=== PATIENT | female | born 1975 | race Caucasian/White ===

== ENCOUNTER → 2017-12-09 15:56 | Outpatient (CLI) | payer BC, SELFPAY ==
[2017-12-13 11:24] LABS: HPV APTIMA, High Risk Negative (Negative)
[2017-12-13 11:25] LABS: HPV Reflexed? YES, CHARGE PATIENT
== END ==
PROVIDERS: Family Provider Internal Medicine; PCP Internal Medicine; Visit Provider Obstetrics & Gynecology
DX: Z01.419 Encounter for gynecological examination (general) (routine) without abnormal findings (principal); Z12.4 Encounter for screening for malignant neoplasm of cervix; Z11.3 Encounter for screening for infections with a predominantly sexual mode of transmission
CPT/HCPCS: 87624; 88175; G0145

== ENCOUNTER → 2018-03-20 15:28 | Outpatient (CLI) | payer BC, SELFPAY ==
--- NOTE | 2018-03-20 15:28 | DT_ITS ---
This patient was seen during an EMR downtime March 17, 2018 - March 24, 2018. This patient may have a combination of paper and electronic documentation or all paper documentation. All documentation is viewable within the e-chart portion of [facility] for each patient visit.
--- NOTE | 2018-03-20 15:32 | RAD_ITS ---
STUDY: X-RAY - RIGHT HUMERUS REASON FOR EXAM: Female, 43 years old. Pain TECHNIQUE: Two view(s) of the RIGHT upper arm were obtained. COMPARISON: None. FINDINGS: Bones: There are no acute osseous abnormalities. Joints: The visualized joints are unremarkable. Soft tissues: The soft tissues are unremarkable. RAD/Humerus min 2 Views IMPRESSION: No significant abnormalities are seen radiographically in the right upper arm. Electronically Signed: Yandy Martínez MD at 22:13 EDT Tel Direct: [phone], Service support ,
--- NOTE | 2018-03-20 15:32 | RAD_ITS ---
STUDY: X-RAY - RIGHT SHOULDER REASON FOR EXAM: Female, 43 years old. Pain TECHNIQUE: Four view(s) of the RIGHT shoulder were obtained. COMPARISON: None. FINDINGS: The glenohumeral joint is within normal limits. The acromioclavicular joint is normal in appearance. No acute abnormalities are seen in the visualized clavicle. No acute abnormalities are seen in the visualized humerus. The soft tissues are unremarkable. The visualized lung and ribs are unremarkable. RAD/Shoulder min 2 Views IMPRESSION: No significant abnormalities are seen radiographically in the right shoulder. Electronically Signed: Yandy Martínez MD at 22:15 EDT Tel Direct: [phone], Service support ,
== END ==
PROVIDERS: Family Provider Internal Medicine; PCP Internal Medicine; Visit Provider Internal Medicine
DX: M79.601 Pain in right arm (principal)
CPT/HCPCS: 73030; 73060

== ENCOUNTER 2018-03-26 15:47 | Outpatient (RCR) | payer BC, SELFPAY ==
--- NOTE | 2018-06-09 15:19 | HP.OTEVAL_ITS ---
Patient's Visit Information MARY GRACE JIMENEZ is a 43 year old F, referred to Occupational Therapy by Theresa Slater, with a diagnosis of right axillary fullness/sore. Date of Evaluation: 03/26/18 Occupational Therapist: Piper Anderson, CAILINR/Cortney, CHT - Subjective Subjective: pt states for 3 years she has had difficulty with lymph axillary sore-. pt states a fullness feeling pain in arm pit- shoulder and going down her arm- pt states full ROM but with prolonged holding or arm up over head her right arm hurts. Pt states she will have a CT scan of her right shoulder done to determine what is going on with her arm in two days. - Pain right UE 0 Pain Intensity Range: 0, 7 - ROM ROM Comments: bilatera UE ROM is within normal limits - Strength Shoulder: right 4+/5 left 4/5 Elbow: right 4+/5 left 4/5 Forearm: right 4+/5 left 4/5 Jumpbasting Lining Baster: right 65# left 40# Lateral Pinch: right 10# left 10# Tripod Pinch: right 14# left 10# Strength Comments: pt demo a decline in left UE strength - with pain pt states she feels weaker - Lymphedema (Circumferential Measure) Upper Exremity Comments: no noted circumferential differences at this time in UE - Sensation Sensation Comments: denies - DASH-Disabilities of Arm, Shoulder& Hand DASH Sum: 40 - Goals Demonstrate adequate knowledge of self-massage by 2nd week: Yes Demonstrate adequate knowledge skin care/prec by 2nd week: Yes Demonstrate adequate knowledge therapeutic exercises by d/c: Yes - Rehabilitation General Assessment: pt demo with tenderness under her right axillary. pt demo need of ed. on lymph stim ex, self MLD and use of compression garments to apply light compression. pt to have CT scan of right shoulder March 28, 2018 to see what they can find. Pt advised to return following so therapist could review ex , MLD and compression. pt stated she would schedule following results. Rehabilitation Potential: Good - Anticipated Interventions Anticipated Interventions: Manual Lymph Drainage, Education re Self Massage Techniques, Home Program - Visit Plan TEXT: Thank you for the opportunity to evaluate your patient. For Medicare and Medicare HMO plans, please review the plan of care and approve it. It will need to be FAXED BACK to us at [phone] for Medicare purposes. Please let me know if there are questions or concerns regarding this plan of care. Physician Signature: Date:
--- NOTE | 2018-06-09 15:19 | HP.OT.NRP ---
HP - Discharge Summary - Patient Information MARY GRACE JIMENEZ was seen in my office for initial evaluation on 03/26/18. The following Plan of Care was established for this patient: - Anticipated Interventions Anticipated Interventions: Manual Lymph Drainage, Education re Self Massage Techniques, Home Program This patient was last seen in our office . Pertinent comments regarding their Occupational therapy will appear below: At this point I will be discontinuing this patient from occupational therapy. I would be happy to see this patient again in the future if found appropriate by the physician. Thank you! Piper Anderson, OTR/L, CHT
--- NOTE | 2018-06-10 09:22 | HP.OT.NRP ---
HP - Discharge Summary - Patient Information MARY GRACE JIMENEZ was seen in my office for initial evaluation on 03/26/18. The following Plan of Care was established for this patient: - Anticipated Interventions Anticipated Interventions: Manual Lymph Drainage, Education re Self Massage Techniques, Home Program This patient was last seen in our office 03/26/18. Pertinent comments regarding their Occupational therapy will appear below: pt was seen for initial eval, pt did not return for follow up tx and due to time laps pt D/C at this time. At this point I will be discontinuing this patient from occupational therapy. I would be happy to see this patient again in the future if found appropriate by the physician. Thank you! Piper Anderson, OTR/L, CHT
== END 2018-03-26 19:00 | disposition home or self-care (01) ==
LOC: OT 15:47
PROVIDERS: Family Provider Internal Medicine; PCP Internal Medicine; Visit Provider Internal Medicine
DX: R22.2 Localized swelling, mass and lump, trunk (principal)
CPT/HCPCS: 97166

== ENCOUNTER → 2018-03-28 06:39 | Outpatient (CLI) | payer BC, SELFPAY ==
--- NOTE | 2018-03-28 06:42 | CT_ITS ---
STUDY: CT RIGHT SHOULDER REASON FOR EXAM: Female, 43 years old. Right axillary fullness, shoulder aching and arm pain, no trauma. RADIATION DOSAGE (If Supplied By Facility): CTDIvol = ( 12.10 ) mGy, DLP = ( 713.81 ) mGycm TECHNIQUE: The patient was scanned in a multi detector CT scanner. High resolution transaxial imaging was performed without the administration of intravenous contrast material. Sagittal and coronal images were reconstructed. Images were performed prior to and following intravenous contrast ministration. Individualized dose optimization techniques were used for this CT. COMPARISON: None. FINDINGS: Normal glenohumeral articulation. Normal glenoid rim, neck and visualized scapula. Normal humeral head, neck and tuberosities. Normal coracoid process. Normal visualized lateral clavicle. Normal acromioclavicular articulation. There is a Type I morphology (flat undersurface), with a neutral orientation. There are small nonpathologic appearing right axillary lymph nodes. No enhancing mass. CT/Extremity Upper W/WO Contrast IMPRESSION: Normal CT of the shoulder. Electronically Signed: Ford Strickland DO at 13:03 EDT Tel , Service support ,
== END ==
PROVIDERS: Family Provider Internal Medicine; PCP Internal Medicine; Visit Provider Internal Medicine
DX: R22.2 Localized swelling, mass and lump, trunk (principal)
CPT/HCPCS: 73202

== ENCOUNTER → 2018-11-11 15:16 | Outpatient (CLI) | payer BC, SELFPAY ==
--- NOTE | 2018-11-11 15:20 | BI_ITS ---
MAMMOGRAPHY - BILATERAL SCREENING REASON FOR EXAM: Female, 43 years old. Routine annual screening examination. PERTINENT HISTORY: Non-contributory. TECHNIQUE: Digital bilateral breast yvette (3D mammographic acquisition) in the CC and MLO projections. 2-D mediolateral oblique (MLO) and craniocaudad (CC) views of both breasts were obtained. CAD: Full Field Digital Mammography with Computer Added Detection was performed. COMPARISON: Comparison is made with prior study dated August 27, 2017 and December 10, 2014. FINDINGS: Breast Composition: The breasts are heterogeneously dense, which may obscure small masses. There are no dominant masses or suspicious calcifications. Stable bilateral benign-appearing axillary lymph nodes. No other significant abnormalities are identified. There has been no significant change since the prior study. BI/SCREENING MAMM (CAD), BILAT IMPRESSION: Stable bilateral screening mammogram. Yearly follow-up mammogram recommended. (A) ASSESSMENT CATEGORY: BIRADS Category 2: Benign. A letter regarding these results will be sent to the patient by the facility within 30 days. Approximately 10% of breast cancers are not detected by mammography. A normal mammogram should not delay biopsy of a clinically suspicious abnormality. [id number] Electronically Signed: Ron Gross MD at 10:09 EST , Service support ,
== END ==
PROVIDERS: Family Provider Internal Medicine; PCP Internal Medicine; Referring Provider Internal Medicine; Visit Provider Internal Medicine
DX: Z12.31 Encounter for screening mammogram for malignant neoplasm of breast (principal)
CPT/HCPCS: 77063; 77067

== ENCOUNTER → 2019-11-12 | Outpatient (CLI) | payer BC, SELFPAY ==
--- NOTE | 2019-11-12 15:42 | BI_ITS ---
MAMMOGRAPHY - BILATERAL SCREENING REASON FOR EXAM: Female, 44 years old. Routine annual screening examination. PERTINENT HISTORY: Non-contributory. TECHNIQUE: Digital bilateral breast jayme (3D mammographic acquisition) in the CC and MLO projections. 2-D mediolateral oblique (MLO) and craniocaudad (CC) views of both breasts were obtained. CAD: Full Field Digital Mammography with Computer Added Detection was performed. COMPARISON: Comparison is made with prior study dated November 11, 2018 and August 27, 2017. FINDINGS: Breast Composition: The breasts are heterogeneously dense, which may obscure small masses. There are no dominant masses or suspicious calcifications. No other significant abnormalities are identified. There has been no significant change since the prior study. BI/SCREEN MAMM (CAD) W/JAYME BILAT IMPRESSION: Stable bilateral screening mammogram. Yearly follow-up mammogram recommended. (A) ASSESSMENT CATEGORY: BIRADS Category 1: Negative. A letter regarding these results will be sent to the patient by the facility within 30 days. Approximately 10% of breast cancers are not detected by mammography. A normal mammogram should not delay biopsy of a clinically suspicious abnormality. [id number] Electronically Signed: Ron Gross, at 8:33 EST , Service support ,
== END | disposition home or self-care (01) ==
LOC: OPBI 15:39
PROVIDERS: Family Provider Internal Medicine; PCP Internal Medicine; Referring Provider Internal Medicine; Visit Provider Internal Medicine
DX: Z12.31 Encounter for screening mammogram for malignant neoplasm of breast (principal)
CPT/HCPCS: 77063; 77067

== ENCOUNTER → 2021-05-11 06:57 | Outpatient (CLI) | payer BC, SELFPAY ==
--- NOTE | 2021-05-11 06:59 | BI_ITS ---
MAMMOGRAPHY - BILATERAL SCREENING REASON FOR EXAM: Female, 46 years old. Routine annual screening examination. PERTINENT HISTORY: Non-contributory. TECHNIQUE: Digital bilateral breast jayme (3D mammographic acquisition) in the CC and MLO projections. 2-D mediolateral oblique (MLO) and craniocaudad (CC) views of both breasts were obtained. CAD: Full Field Digital Mammography with Computer Added Detection was performed. COMPARISON: Comparison is made with prior study dated 11/12/2019 and 11/11/2018. FINDINGS: Breast Composition: The breasts are heterogeneously dense, which may obscure small masses. There are no dominant masses or suspicious calcifications. No other significant abnormalities are identified. There has been no significant change since the prior study. BI/SCRN MAMM (CAD)W/JAYME BILAT IMPRESSION: Stable bilateral screening mammogram. Yearly follow-up mammogram recommended. (A) ASSESSMENT CATEGORY: BIRADS Category 1: Negative. A letter regarding these results will be sent to the patient by the facility within 30 days. Approximately 10% of breast cancers are not detected by mammography. A normal mammogram should not delay biopsy of a clinically suspicious abnormality. [id number] Electronically Signed: Ron Gross MD at 8:54 EDT , Service support ,
== END ==
PROVIDERS: PCP Internal Medicine; Referring Provider Internal Medicine; Visit Provider Internal Medicine
DX: Z12.31 Encounter for screening mammogram for malignant neoplasm of breast (principal)
CPT/HCPCS: 77063; 77067

== ENCOUNTER → 2022-06-05 | Outpatient (CLI) | payer BC, SELFPAY ==
[2022-06-12 17:45] LABS: HPV APTIMA, High Risk Negative (Negative)
== END | disposition home or self-care (01) ==
LOC: LABSPEC 15:16
PROVIDERS: PCP Internal Medicine; Visit Provider Obstetrics & Gynecology
DX: Z12.4 Encounter for screening for malignant neoplasm of cervix (principal)
CPT/HCPCS: 87624; 88175; G0145

== ENCOUNTER → 2022-06-14 | Outpatient (CLI) | payer BC, SELFPAY ==
--- NOTE | 2022-06-14 07:41 | BI_ITS ---
MAMMOGRAPHY - BILATERAL SCREENING REASON FOR EXAM: Female, 47 years old. Routine annual screening examination. PERTINENT HISTORY: Non-contributory. TECHNIQUE: Digital bilateral breast jayme (3D mammographic acquisition) in the CC and MLO projections. 2-D mediolateral oblique (MLO) and craniocaudad (CC) views of both breasts were obtained. CAD: Full Field Digital Mammography with Computer Added Detection was performed. COMPARISON: Comparison is made with prior study dated 05/11/2021 and 11/12/2019. FINDINGS: Breast Composition: The breasts are heterogeneously dense, which may obscure small masses. There are no dominant masses or suspicious calcifications. Stable small benign-appearing bilateral axillary lymph nodes. No other significant abnormalities are identified. There has been no significant change since the prior study. BI/SCRN MAMM (CAD)W/JAYME BILAT IMPRESSION: Stable bilateral screening mammogram. Yearly follow-up mammogram recommended. (A) ASSESSMENT CATEGORY: BIRADS Category 2: Benign. A letter regarding these results will be sent to the patient by the facility within 30 days. Approximately 10% of breast cancers are not detected by mammography. A normal mammogram should not delay biopsy of a clinically suspicious abnormality. [id number] Electronically Signed: Ron Gross MD at 8:26 EDT ,
== END | disposition home or self-care (01) ==
LOC: OPBI 07:38
PROVIDERS: PCP Internal Medicine; Visit Provider Obstetrics & Gynecology
DX: Z12.31 Encounter for screening mammogram for malignant neoplasm of breast (principal)
CPT/HCPCS: 77063; 77067

== ENCOUNTER → 2023-08-06 | Outpatient (CLI) | payer BC, SELFPAY ==
--- NOTE | 2023-08-06 14:34 | BI_ITS ---
MAMMOGRAPHY - BILATERAL SCREENING REASON FOR EXAM: Female, 48 years old. Routine annual screening examination. PERTINENT HISTORY: Non-contributory. TECHNIQUE: Digital bilateral breast jayme (3D mammographic acquisition) in the CC and MLO projections. 2-D mediolateral oblique (MLO) and craniocaudad (CC) views of both breasts were obtained. CAD: Full Field Digital Mammography with Computer Added Detection was performed. COMPARISON: Comparison is made with prior study dated June 14, 2022 and May 11, 2021. FINDINGS: Breast Composition: The breasts are heterogeneously dense, which may obscure small masses. There are no dominant masses or suspicious calcifications. No other significant abnormalities are identified. There has been no significant change since the prior study. BI/SCRN MAMM (CAD)W/JAYME BILAT IMPRESSION: Stable bilateral screening mammogram. Yearly follow-up mammogram recommended. (A) ASSESSMENT CATEGORY: BIRADS Category 1: Negative. A letter regarding these results will be sent to the patient by the facility within 30 days. Approximately 10% of breast cancers are not detected by mammography. A normal mammogram should not delay biopsy of a clinically suspicious abnormality. [id number] Electronically Signed: Ron Gross MD at 15:36 EDT ,
== END | disposition home or self-care (01) ==
LOC: OPBI 14:33
PROVIDERS: PCP Internal Medicine; Referring Provider Internal Medicine; Visit Provider Internal Medicine
DX: Z12.31 Encounter for screening mammogram for malignant neoplasm of breast (principal)
CPT/HCPCS: 77063; 77067

== ENCOUNTER 2023-08-28 14:27 | Outpatient (RCR) | payer BC, SELFPAY ==
--- NOTE | 2023-08-28 16:30 | HP.OTEVAL_ITS ---
Patient's Visit Information Visit Information Visit Information: MARY GRACE JIMENEZ is a 48 year old F, referred to Occupational Therapy by Dr. Theresa Slater DO, with a diagnosis of lymphedema. Date of Evaluation: 08/28/23 Occupational Therapist: Piper Anderson, JOSEFA/Cortney, CHT Subjective Subjective: This 48 year old female was seen for OT eval with dx of right UE lymphedema-Pt states she has had a thickening under her right arm for about three years- states she felt it when washing her underarm- has been through a number of different test and they revel no concerns- pt states US and mammograms' are normal - when she uses her arm more it does get sore and hurts. 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 pt would like to figure out what she can do to mtg the discomfort Pain left axillary: Current Pain Intensity: 0 Pain Intensity Range: 4 and 5 ROM ROM Comments: pt demo ROM is WNL Lymphedema (Circumferential Measure) MCP: right 18cm left 18cm Wrist: right 15.5cm left 15cm Lower forearm: right 21cm left 21cm Largest forearm: right 25.5cm left 25.5cm Elbow: right 26.5cm left 26.5cm Largest humerus: right 32.5cm left 32.5cm Axcillary: right 38cm left 38cm Sensation Sensation Comments: denies states at night will get tingling but states she sleeps on her belly and side Quick DASH-Disab of Arm,Shoulder& Hand Quick DASH Score: 14.2850 Goals Goal: Patient will demonstrate adequate knowledge of self-massage by the end of the second week.: Yes Goal: Patient will demonstrate adequate knowledge of skin care and precautions by the end of the first week.: Yes Goal: Patient will demonstrate adequate knowledge of therapeutic exercises by discharge.: Yes Rehabilitation General Assessment: pt demo with tenderness under right axillary/pec region- pt suffers from soreness following use of right UE with ADLs. Pt also demo with poor sitting posture shoulder rolled forward and neck. pt would benefit from skilled OT services 2-3 visits to ed. pt on self manual lymph drainage along with postural stretching and strengthening. Today therapist gave info on self manual lymph drainage massage - pt demo understanding and agree to POC. Rehabilitation Potential: Good Anticipated Interventions Anticipated Interventions: A/AAROM/PROM, Strengthening, Education re assistive Equipment, Education re Diagnosis, Manual Lymph Drainage, Education re Life-long lymphedema Management, Education re Skin Care and Precautions, Education re Self Massage Techniques, Caregiver Training and Home Program Visit Plan Frequency: 1x/Week Duration: 2-4 Weeks TEXT: Thank you for the opportunity to evaluate your patient. For Medicare and Medicare HMO plans, please review the plan of care and approve it. It will need to be FAXED BACK to us at [phone] for Medicare purposes. Please let me know if there are questions or concerns regarding this plan of care. Physician Signature: Date:
--- NOTE | 2024-01-22 14:09 | HP.OT.NRP ---
Patient Information Patient Information: MARY GRACE JIMENEZ was seen in my office for initial evaluation on 08/28/23. The following Plan of Care was established for this patient: POC Established Initial Frequency: 1x/Week Initial Duration: 2-4 Weeks Anticipated Interventions Anticipated Interventions: A/AAROM/PROM, Strengthening, Education re assistive Equipment, Education re Diagnosis, Manual Lymph Drainage, Education re Life-long lymphedema Management, Education re Skin Care and Precautions, Education re Self Massage Techniques, Caregiver Training and Home Program Last Seen Last Seen: This patient was last seen in our office 08/28/23. Pertinent comments regarding their Occupational therapy will appear below: pt was seen for eval.no further apts were scheduled and due to time lapse in services pt is d/c. At this point I will be discontinuing this patient from occupational therapy. I would be happy to see this patient again in the future if found appropriate by the physician. Thank you! Piper Anderson, OTR/L, CHT
== END 2023-08-28 19:00 | disposition home or self-care (01) ==
LOC: OT 14:27
PROVIDERS: PCP Internal Medicine; Referring Provider Internal Medicine; Visit Provider Internal Medicine
DX: M76.61 Achilles tendinitis, right leg (principal); M72.2 Plantar fascial fibromatosis; M76.821 Posterior tibial tendinitis, right leg; I89.0 Lymphedema, not elsewhere classified
CPT/HCPCS: 97166

== ENCOUNTER → 2024-05-01 | Outpatient (CLI) | payer BC, SELFPAY ==
--- NOTE | 2024-05-01 14:24 | US_ITS ---
STUDY: ULTRASOUND BREAST - RIGHT REASON FOR EXAM: Female, 49 years old. Right axillary tenderness. TECHNIQUE: Axial and longitudinal images of the RIGHT breast were performed with a high resolution ultrasound transducer. # OF IMAGES: 43 COMPARISON: Comparison is made with prior mammogram done earlier in the day. FINDINGS: RIGHT Breast: The right axilla was examined with ultrasound. There are 3 benign appearing axillary lymph nodes. The largest lymph node measures 1.9 cm x 1.7 cm x 0.5 cm. US/Breast Limited Unilateral IMPRESSION: 3 benign appearing axillary lymph nodes. The largest lymph node measures 1.9 cm x 1.7 cm x 0.5 cm. ASSESSMENT CATEGORY: BIRADS Category 2: Benign. A letter regarding these results will be sent to the patient by the facility within 30 days. Electronically Signed: Ron Gross MD at 8:20 EDT ,
--- NOTE | 2024-05-01 14:24 | BI_ITS ---
MAMMOGRAPHY - BILATERAL DIAGNOSTIC REASON FOR EXAM: Female, 49 years old. Right axillary tenderness. PERTINENT HISTORY: Non-contributory. TECHNIQUE: Digital bilateral breast yvette (3D mammographic acquisition) in the CC and MLO projections. 2-D mediolateral oblique (MLO) and craniocaudad (CC) views of both breasts were obtained. CAD: Full Field Digital Mammography with Computer Added Detection was performed. COMPARISON: Comparison is made with prior study dated August 06, 2023 and June 14, 2022. FINDINGS: Breast Composition: The breasts are heterogeneously dense, which may obscure small masses. There are no dominant masses or suspicious calcifications. No other significant abnormalities are identified. There has been no significant change since the prior study. BI/DIAG MAMM W/CAD, BILAT IMPRESSION: Stable bilateral diagnostic mammogram. With the patient''s history of right axillary tenderness, correlation with ultrasound is recommended. ASSESSMENT CATEGORY: BIRADS Category 0: Incomplete. Need additional imaging evaluation. A letter regarding these results will be sent to the patient by the facility within 30 days. Approximately 10% of breast cancers are not detected by mammography. A normal mammogram should not delay biopsy of a clinically suspicious abnormality. Electronically Signed: Ron Gross MD at 8:24 EDT ,
== END | disposition home or self-care (01) ==
LOC: OPBI 14:23
PROVIDERS: PCP Internal Medicine; Referring Provider Nurse Practitioner Family; Visit Provider Nurse Practitioner Family
DX: M79.89 Other specified soft tissue disorders (principal)
CPT/HCPCS: 76642; 77062; 77066; G0279

== ENCOUNTER → 2024-05-26 | Outpatient (CLI) | payer BC, SELFPAY ==
--- NOTE | 2024-05-26 07:48 | US_ITS ---
STUDY: THYROID ULTRASOUND REASON FOR EXAM: Female, 49 years old. multiple thyroid nodules TECHNIQUE: Ultrasound evaluation of the thyroid was performed with real-time and static casillas-scale imaging. COMPARISON: None. FINDINGS: RIGHT LOBE: The right lobe of the thyroid gland measures 5.4 x 1.7 x 1.4 cm. There is a heterogeneous echotexture. There are no demonstrated solid, cystic or complex lesions. LEFT LOBE: The left lobe of the thyroid gland measures 4.9 x 1.8 x 1.1 cm. There is a heterogeneous echotexture. There are no demonstrated solid, cystic or complex lesions. ISTHMUS: The isthmus measures 3 mm thick. . The regional lymph nodes are normal. US/Thyroid IMPRESSION: Thyroiditis but no dominant nodule. Electronically Signed: Charles Mckeon MD at 13:55 EDT ,
== END | disposition home or self-care (01) ==
LOC: US 07:48
PROVIDERS: PCP Internal Medicine; Referring Provider Internal Medicine; Visit Provider Internal Medicine
DX: E04.2 Nontoxic multinodular goiter (principal)
CPT/HCPCS: 76536

== ENCOUNTER → 2024-06-30 | Outpatient (CLI) | payer BC, SELFPAY ==
--- NOTE | 2024-06-30 13:21 | US_ITS ---
STUDY: RENAL ULTRASOUND - COMPLETE REASON FOR EXAM: Female, 49 years old. LESION -- kidney lesion, [place], left TECHNIQUE: Ultrasound evaluation of the kidneys was performed with real-time and static geiger-scale imaging. COMPARISON: None. FINDINGS: RIGHT KIDNEY: Normal location of the right kidney, which is normal in size. The right kidney measures 10.9 cm x 5.5 cm x 4.9 cm. There is a normal cortex of the right kidney. The renal cortex measures 1.6 cm. There is no right renal mass or cyst. There are no right renal calculi. There is no right hydronephrosis. DISTAL RIGHT URETER: There is non-visualization of the distal right ureter. There is no demonstrated right ureterovesical junction calculus. There is a visualized right ureteral jet. LEFT KIDNEY: Normal location of the left kidney, which is normal in size. The left kidney measures 11.1 cm x 4.6 cm x 4.7 cm. There is a normal cortex of the left kidney. The renal cortex measures 1.4 cm. There is no left renal mass or cyst. There is a 4 mm x 4 mm x 5 mm left intrarenal calculus. There is no left hydronephrosis. DISTAL LEFT URETER: There is non-visualization of the distal left ureter. There is no demonstrated left ureterovesical junction calculus. There is a visualized left ureteral jet. BLADDER: The distended urinary bladder has a volume of 396 ml. There is a normal wall thickness of the distended urinary bladder. There is no demonstrated mass within the urinary bladder. There are no demonstrated bladder calculi. US/Kidney and Bladder IMPRESSION: Normal ultrasound of the kidneys and urinary bladder. 4 mm x 4 mm x 5 mm left intrarenal calculus. Electronically Signed: Ron Gross MD at 14:20 EDT ,
--- NOTE | 2024-06-30 13:21 | US_ITS ---
STUDY: ULTRASOUND BREAST - RIGHT REASON FOR EXAM: Female, 49 years old. Right axillary lymph nodes. TECHNIQUE: Axial and longitudinal images of the RIGHT breast were performed with a high resolution ultrasound transducer. # OF IMAGES: 15 COMPARISON: Comparison is made with prior study dated May 01, 2024. FINDINGS: RIGHT Breast: Once again, 3 benign-appearing lymph nodes are seen in the right axilla. The largest measures 2.2 cm x 1.1 cm x 0.6 cm. US/Breast Limited Unilateral IMPRESSION: Benign-appearing right axillary lymph nodes. ASSESSMENT CATEGORY: BIRADS Category 2: Benign. A letter regarding these results will be sent to the patient by the facility within 30 days. Electronically Signed: Ron Gross MD at 14:21 EDT ,
== END | disposition home or self-care (01) ==
LOC: OPUS 13:18
PROVIDERS: PCP Internal Medicine; Referring Provider Internal Medicine; Visit Provider Internal Medicine
DX: R59.9 Enlarged lymph nodes, unspecified (principal); N28.9 Disorder of kidney and ureter, unspecified
CPT/HCPCS: 76642; 76770

== ENCOUNTER → 2024-07-01 | Outpatient (CLI) | payer BC, SELFPAY ==
--- NOTE | 2024-07-01 07:18 | US_ITS ---
STUDY: ABDOMINAL ULTRASOUND - RIGHT UPPER QUADRANT REASON FOR VISIT: Female, 49 years old RUQ pain TECHNIQUE: Ultrasound evaluation of the right upper quadrant was performed with real-time and static casillas-scale imaging. TECHNICAL QUALITY: Adequate. COMPARISON: None. FINDINGS: Liver: The liver measures 13.9 cm. There is a mild degree of increased echogenicity consistent with mild degree of fatty infiltration. The bile ducts are within normal limits. There is hepatic color flow. The direction of portal flow is hepatopetal. There is no demonstrated mass lesion. Gallbladder: The patient is status post cholecystectomy. Common Bile Duct (C.B.D.): The common bile duct measures 4.5 mm. Pancreas: Normal size of the head, body and tail of the pancreas. There is normal echogenicity of the pancreas. There is no demonstrated pancreatic mass or cyst. Right Kidney: Normal size of the right kidney. The right kidney measures 11.1 cm x 5.6 cm x 4.8 cm. Normal renal cortex. The right cortex measures 1.5 cm. There is no demonstrated renal mass or cyst. There is no right hydronephrosis. US/Abdomen Limited IMPRESSION: Mild degree of fatty infiltration of the liver. Status post cholecystectomy. Electronically Signed: Ron Gross MD at 8:53 EDT ,
== END | disposition home or self-care (01) ==
LOC: US 07:18
PROVIDERS: PCP Internal Medicine; Referring Provider Internal Medicine; Visit Provider Internal Medicine
DX: R10.11 Right upper quadrant pain (principal)
CPT/HCPCS: 76705

== ENCOUNTER → 2024-07-17 | Outpatient (CLI) | payer BC, SELFPAY ==
--- NOTE | 2024-07-17 08:57 | US_ITS ---
STUDY: ABDOMINAL ULTRASOUND - ELASTOGRAPHY REASON FOR VISIT: Female, 49 years old. Fatty infiltration of the liver. TECHNIQUE: Liver stiffness measurements were obtained on a [employer] RS 85 ultrasound machine using a CA 1-7 probe following the U guidelines. 3 measurements were obtained using a 2-D-SWE method. TheIQR/M was 12% suggesting a quality data set. TECHNICAL QUALITY: Adequate. COMPARISON: None. FINDINGS: Liver: There is no demonstrated mass lesion. Median liver stiffness measured 6.9 kPa. Abdomen: There is no demonstrated mass lesion. US/Elastography Parenchyma/Organ IMPRESSION: Liver stiffness measures 6.9 kPa compatible with F2-F3 (Mild to moderate liver fibrosis) Metavir score. Electronically Signed: Ron Gross MD at 15:08 EDT ,
== END | disposition home or self-care (01) ==
LOC: US 08:56
PROVIDERS: PCP Internal Medicine; Referring Provider Internal Medicine; Visit Provider Internal Medicine
DX: K76.0 Fatty (change of) liver, not elsewhere classified (principal)
CPT/HCPCS: 76981

== ENCOUNTER → 2024-07-21 | Outpatient (CLI) | payer BC, SELFPAY ==
[2024-07-21 12:56] LABS: D-Dimer Quantitative (DVT/PE) 0.33 FEU/ug/m (0.27-0.49)
== END | disposition home or self-care (01) ==
LOC: LABSPEC 12:21
PROVIDERS: PCP Internal Medicine; Referring Provider Internal Medicine; Visit Provider Internal Medicine
DX: R06.02 Shortness of breath (principal)
CPT/HCPCS: 85379

== ENCOUNTER → 2024-07-31 | Outpatient (CLI) | payer BC, SELFPAY ==
--- NOTE | 2024-07-31 07:47 | RAD_ITS ---
EXAM: SMALL BOWEL FOLLOW THROUGH REASON FOR EXAM: Female, 49 years old. ABD PAIN PAIN TECHNIQUE: Single wellfield technician film was obtained of the abdomen. Following initiation of oral contrast, a small bowel series was obtained. COMPARISON: None. FINDINGS: Blood Bank Custodian film demonstrates no acute abnormalities of the abdomen. The stomach and duodenum are within normal limits. There are no filling defects. Oral contrast is visualized in the duodenum at the zero minute nazanin. Contrast is visualized in the proximal jejunum at 30minutes. Contrast is visualized in the colon at 1hr 15min. Terminal ileum is poorly visualized. RAD/Small Bowel Series Only IMPRESSION: Normal small bowel series Electronically Signed: Sergei Zafar MD at 17:36 EDT ,
== END | disposition home or self-care (01) ==
LOC: RAD 07:45
PROVIDERS: PCP Internal Medicine; Referring Provider Internal Medicine Gastroenterology; Visit Provider Internal Medicine Gastroenterology
DX: R10.9 Unspecified abdominal pain (principal)
CPT/HCPCS: 74250

== ENCOUNTER → 2024-08-12 | Outpatient (CLI) | payer BC, SELFPAY ==
--- NOTE | 2024-08-12 07:47 | CT_ITS ---
INDICATION: COMPUTED TOMOGRAPHY ANGIOGRAPHY OF CHEST FOR PULMONARY EMBOLISM, -- Shortness of breath EXAMINATION: CT CHEST WITH CONTRAST - CTA Chest WO/W Contrast Injection TECHNIQUE: Helically acquired images were obtained of the chest following IV contrast timed in the pulmonary arterial phase with sagittal and coronal reconstructed images. Post-processing of the angiographic images was performed with multiplanar reformation and 3D reconstruction. Individualized dose optimization techniques were used for this CT. IV contrast dosage and agent: 100 mL of Isovue-370. COMPARISON: 09/22/2013 CT. FINDINGS: LUNGS, PLEURA AND LARGE AIRWAYS: No consolidation or edema. No pulmonary nodule. No pleural effusion. No pneumothorax. THYROID: Unremarkable. HEART AND PERICARDIUM: No evidence of coronary artery calcification. No pericardial effusion. No evidence of right heart strain. Right ventricle to left ventricle ratio measures less than 1. MEDIASTINUM AND MARIBELL: No mediastinal or hilar adenopathy. Esophagus is unremarkable. No hiatal hernia. VESSELS: No pulmonary embolism. No thoracic aortic aneurysm. UPPER ABDOMEN: The visualized upper abdomen is unremarkable. BONES: No acute abnormality. CT/CTA Chest W/WO Contrast IMPRESSION: 1. No pulmonary embolism. 2. No evidence of cardiopulmonary disease. Electronically Signed: Martín Rivas DO at 23:40 EDT ,
== END | disposition home or self-care (01) ==
LOC: CT 07:45
PROVIDERS: PCP Internal Medicine; Referring Provider Internal Medicine; Visit Provider Internal Medicine
DX: R06.02 Shortness of breath (principal)
CPT/HCPCS: 71275; Q9967

== ENCOUNTER → 2024-12-01 | Outpatient (CLI) | payer BC, SELFPAY ==
[2024-12-01 15:33] LABS: Absolute Lymphocyte Count 2.79 X10^3/uL (0.83-4.51); Absolute Neutrophil Count 3.7 X10^3/uL (2.0-7.7); Basophil# 0.02 X10^3/uL; Basophil% 0.3 % (0-1); Eosinophil# 0.07 X10^3/uL; Hematocrit 37.8 % (37-47); Hemoglobin 12.5 g/dL (12.0-15.0); Lymphocyte # 2.79 X10^3/ul (0.83-4.51); Lymphocyte % 39.5 % (19-41); Mean Corp Hgb Conc 33.1 g/dL (32-36); Mean Corpuscular Hgb 29.8 pg (27.0-32.0); Mean Platelet Vol. 9.9 fl (6.2-12.0); Monocyte# 0.44 X10^3/uL; Monocyte% 6.2 % (0-10); NRBC Flagged by Analyzer 0 % (0-5); Neutrophil # 3.72 X10^3/uL (2.7-7.7); Neutrophil % 52.7 % (47-70); Platelet Count 253 K/mm3 (150-450); RBC Distribution Width SD 42.8 fl (35.1-43.9); White Blood Count 7.1 K/mm3 (4.4-11.0)
[2024-12-01 16:12] LABS: ALB/GLOB Ratio 0.9 RATIO (0.9-2.4); AST(SGOT) 19 U/L (15-37); Alanine Aminotransfer ALT/SGPT 13 U/L (13-56); Albumin, Serum 3.6 g/dL (3.2-5.0); Alkaline Phosphatase 69 U/L (45-117); Anion Gap 6 (5-15); BUN 8 mg/dL (7-18); BUN/Creat Ratio 11.1 RATIO (10-20); Calcium,Total 9.9 mg/dL (8.5-10.1); Chloride 104 mmol/L (98-107); Creatinine, Serum 0.72 mg/dL (0.55-1.02); EST Glomerular Filtration Rate 90 mL/min (>60); Est Glom Filt Rate - Afr Amer 109 mL/min (>60); Globulin 3.9 g/dL (2.2-4.2); Glucose 85 mg/dL (74-106); Lipase 31 U/L (73-393); Potassium 3.5 mmol/L (3.5-5.1); Protein, Total 7.5 g/dL (6.4-8.2); Sodium Level 138 mmol/L (136-145)
[2024-12-01 16:42] LABS: Hepatitis B Surface Antibody Non-Reactive; Hepatitis B Surface Antigen Non-Reactive (Nonreactive); Hepatitis C Antibody Non-Reactive (Nonreactive)
[2024-12-03 05:07] LABS: Hepatitis A AB, Total Negative (Negative); Hepatitis B Core Ab Total Negative (Negative)
== END | disposition home or self-care (01) ==
PROVIDERS: PCP Internal Medicine; Referring Provider Nurse Practitioner Acute Care; Visit Provider Nurse Practitioner Acute Care
DX: R10.11 Right upper quadrant pain (principal); K76.0 Fatty (change of) liver, not elsewhere classified; M54.9 Dorsalgia, unspecified; R11.0 Nausea
CPT/HCPCS: 36415; 80053; 83690; 85025; 86704; 86706; 86708; 86803; 87340

== ENCOUNTER → 2024-12-04 | Outpatient (CLI) | payer BC, SELFPAY | END | disposition home or self-care (01) | LOC: LAB 16:02 | PROVIDERS: PCP Internal Medicine; Referring Provider Nurse Practitioner Acute Care; Visit Provider Nurse Practitioner Acute Care | DX: Z00.00 Encounter for general adult medical examination without abnormal findings (principal) ==

== ENCOUNTER → 2024-12-05 | Outpatient (CLI) | payer BC, SELFPAY ==
[2024-12-10 15:08] LABS: H. PYLORI STOOL AG Negative (Negative); Pancreatic Elastase, Fecal > 800 (>200)
== END | disposition home or self-care (01) ==
LOC: LABSPEC 10:09
PROVIDERS: PCP Internal Medicine; Referring Provider Nurse Practitioner Acute Care; Visit Provider Nurse Practitioner Acute Care
DX: R11.0 Nausea (principal); R74.8 Abnormal levels of other serum enzymes; R10.11 Right upper quadrant pain; M54.9 Dorsalgia, unspecified
CPT/HCPCS: 82653; 87338

== ENCOUNTER → 2024-12-21 | Outpatient (CLI) | payer BC, SELFPAY | END | disposition home or self-care (01) | LOC: LABSPEC 15:43 | PROVIDERS: PCP Internal Medicine; Referring Provider Otolaryngology Otolaryngology/Facial Plastic Surgery; Visit Provider Otolaryngology Otolaryngology/Facial Plastic Surgery | DX: J02.9 Acute pharyngitis, unspecified (principal) | CPT/HCPCS: 87070 ==

== ENCOUNTER → 2025-01-01 | Outpatient (CLI) | payer BC, SELFPAY ==
--- NOTE | 2025-01-01 07:52 | NM_ITS ---
PROCEDURE: GASTRIC EMPTYING STUDY - 4 HR 01/01/2025 REASON FOR EXAM: NAUSEA Epigastric pain. TECHNIQUE: The patient ingested a mixture of 2 pieces of bread with 2 eggs and 6 oz of water mixed with 1.1 mCi of technetium labeled sulfur colloid. RADIOPHARMACEUTICAL: 1.1 mCi of technetium labeled sulfur colloid. COMPARISON: None. FINDINGS: 9 9% of the radiopharmaceutical exited the stomach at 4 hours. 45% exited the stomach at 56 minutes. This is a normal study. NM/Gastric Emptying Study - 4 HR IMPRESSION: Normal gastric emptying study. Reading Location: [facility]
== END | disposition home or self-care (01) ==
LOC: NM 07:46
PROVIDERS: PCP Internal Medicine; Referring Provider Nurse Practitioner Acute Care; Visit Provider Nurse Practitioner Acute Care
DX: R11.0 Nausea (principal); R10.11 Right upper quadrant pain; K76.0 Fatty (change of) liver, not elsewhere classified; M54.9 Dorsalgia, unspecified
CPT/HCPCS: 78264; A9541

== ENCOUNTER → 2025-01-05 | Outpatient (CLI) | payer BC, SELFPAY ==
--- NOTE | 2025-01-05 14:17 | US_ITS ---
PROCEDURE: BREAST LIMITED UNILATERAL 01/05/2025 please see combined report under heading of new today's unilateral mammogram. Reading Location: [facility]
--- NOTE | 2025-01-05 14:17 | BI_ITS ---
EXAM: Unilateral (left) mammogram with tomography. Left breast sonogram.. CLINICAL HISTORY: Tenderness. COMPARISON: Unilateral left mammogram of June 30, 2024. TECHNIQUE: 2D and 3D mammographic imaging on the left side is performed. This is supplemented by real-time sonography. FINDINGS: There is an unchanged 6 mm slightly lobulated mammographic soft tissue density deep in the left breast at 6 o'clock which is unchanged. Sonographic correlation reveals this to be an irregularly configured anechoic cyst. No suspicious mass lesion is seen in the left breast. No abnormal microcalcifications are noted. Architectural distortion is absent. BI/DIAG MAMM W/CAD, UNILAT IMPRESSION: No specific mammographic evidence of malignancy. Overall final assessment: ACR BI-RADS category 2, benign. [facility]
== END | disposition home or self-care (01) ==
PROVIDERS: PCP Internal Medicine; Referring Provider Internal Medicine; Visit Provider Internal Medicine
DX: N64.9 Disorder of breast, unspecified (principal)
CPT/HCPCS: 76642; 77061; 77065; G0279

== ENCOUNTER → 2025-02-01 | Outpatient (CLI) | payer BC, SELFPAY ==
--- NOTE | 2025-02-01 16:11 | US_ITS ---
PROCEDURE: TRANSVAGINAL NON- 02/01/2025 REASON FOR EXAM: UTERINE CANCER TECHNIQUE: Transvaginal pelvic ultrasound FINDINGS: Measurements: Uterus: 9.8 x 6.3 x 6.6 with a volume of 213 mL Endometrial Thickness: 8 mm Right Ovary: 2.0 x 1.1 x 1.5 with a volume of 1.67 mL. Left Ovary: 3.7 x 1.9 x 2.7 with a volume of 9.7 mL. Uterus: The uterus is retroflexed. 0.8 cm round hypoechoic mass within the anterior fundus of the uterus consistent with an intramural fibroid. 1.8 cm oval hypoechoic mass within the posterior fundus of the uterus consistent with a subserosal fibroid. Another 1.2 cm hypoechoic mass in the anterior fundus of uterus consistent with intramural fibroid. Endometrium: Hyperechoic Right ovary: No abnormal mass Left ovary: No abnormal mass Other: Small amount of free fluid in the cul-de-sac. US/Transvaginal Non- IMPRESSION: Small uterine fibroids. Reading Location: [id number]
== END | disposition home or self-care (01) ==
LOC: US 16:10
PROVIDERS: PCP Internal Medicine; Referring Provider Internal Medicine; Visit Provider Internal Medicine
DX: C55 Malignant neoplasm of uterus, part unspecified (principal)
CPT/HCPCS: 76830

== ENCOUNTER → 2025-02-09 | Outpatient (CLI) | payer BC, SELFPAY ==
[2025-02-12 16:09] LABS: HPV APTIMA, High Risk Negative (Negative)
== END | disposition home or self-care (01) ==
LOC: LABSPEC 16:47
PROVIDERS: PCP Internal Medicine; Referring Provider Obstetrics & Gynecology; Visit Provider Obstetrics & Gynecology
DX: Z12.4 Encounter for screening for malignant neoplasm of cervix (principal)
CPT/HCPCS: 87624; 88175; G0145

== ENCOUNTER → 2025-02-22 | Outpatient (CLI) | payer BC, SELFPAY ==
[2025-02-23 16:09] LABS: Cancer Antigen 125 2303 17.4 U/mL (0.0-38.1)
== END | disposition home or self-care (01) ==
LOC: LAB 09:52
PROVIDERS: Obstetrics & Gynecology; PCP Internal Medicine; Referring Provider Nurse Practitioner Acute Care; Visit Provider Nurse Practitioner Acute Care
DX: R11.0 Nausea (principal); M54.9 Dorsalgia, unspecified; R10.11 Right upper quadrant pain; K76.0 Fatty (change of) liver, not elsewhere classified; R89.8 Other abnormal findings in specimens from other organs, systems and tissues
CPT/HCPCS: 36415; 86304

== ENCOUNTER → 2025-02-25 | Outpatient (CLI) | payer BC, SELFPAY ==
--- NOTE | 2025-02-25 08:50 | RAD_ITS ---
PROCEDURE: ABDOMEN SINGLE VIEW 02/25/2025 REASON FOR EXAM: DAY 3 SITZ MARKER TECHNIQUE: Single view abdomen. FINDINGS: 3 markers seen at the right colon with the majority of markers seen at the splenic flexure and descending left colon. Approximately 4 to 5 markers at the sigmoid colon. Moderate proximal colonic stool. No gaseous distention of bowel. RAD/Abdomen Single View IMPRESSION: Majority markers at day 3 or at the left colon. Reading Location: [id number]
== END | disposition home or self-care (01) ==
LOC: RAD 08:48
PROVIDERS: PCP Internal Medicine; Referring Provider Nurse Practitioner Acute Care; Visit Provider Nurse Practitioner Acute Care
DX: R11.0 Nausea (principal); M54.9 Dorsalgia, unspecified; R10.11 Right upper quadrant pain; K76.0 Fatty (change of) liver, not elsewhere classified
CPT/HCPCS: 74018

== ENCOUNTER → 2025-02-27 | Outpatient (CLI) | payer BC, SELFPAY ==
--- NOTE | 2025-02-27 10:59 | RAD_ITS ---
EXAM: XR Abdomen, 1 View CLINICAL INDICATION: DAY 5 SITZ MARKER TECHNIQUE: Frontal supine view of the abdomen/pelvis. COMPARISON: XR Abdomen dated 02/25/2025 FINDINGS: INTRAPERITONEAL SPACE: Sitz rings in the left mid abdomen and right mid abdomen. Total number appears to decreased since the prior exam. GASTROINTESTINAL TRACT: Fecal retention in the colon consistent with constipation. No dilation. ORGANS: 3 mm calculus in the left renal pelvis. BONES/JOINTS: Unremarkable. No acute fracture. RAD/Abdomen Single View IMPRESSION: 1. Fecal retention in the colon consistent with constipation. 2. 3 mm calculus in the left renal pelvis. 3. Sitz rings in the left mid abdomen and right mid abdomen. Total number joe ears to decreased since the prior exam. Reading Location: [id number]
== END | disposition home or self-care (01) ==
LOC: RAD 10:36
PROVIDERS: PCP Internal Medicine; Referring Provider Nurse Practitioner Acute Care; Visit Provider Nurse Practitioner Acute Care
DX: R11.0 Nausea (principal); M54.9 Dorsalgia, unspecified; R10.11 Right upper quadrant pain; K76.0 Fatty (change of) liver, not elsewhere classified
CPT/HCPCS: 74018

== ENCOUNTER 2025-03-16 10:37 | Day surgery (SDC) | payer BC, SELFPAY ==
--- NOTE | 2025-03-10 16:40 | PAT.ANESEVAL ---
Pre-Assessment Diagnosis/Proposed Procedure Planned Operative Procedure(s): Hysteroscopy,Dilation and Curettage, Bartholins Gland Marsupilization Anesthesia History Anesthesia History - surveillance manager: Anesthesia History - surveillance manager Hx Hospitalization No 03/09/25 11:07 Any Problems With Anesthesia No 03/09/25 11:07 Cholinesterase deficiency No 03/09/25 11:07 You/Your Family Experience No 03/09/25 11:07 fever (hyperthermia) with Relationship Recent Exposure to Contagious Disease Does patient have nerve No 03/09/25 11:07 stimulator Patient instructed to have device shut off --Does patient have Pacemaker or ICD? When Was Last Pacemaker Check QUESTION #4 FULL TEXT: You/Your Family Experience fever (hyperthermia) with Anesthesia Last Oral Intake Last Oral intake: Last Oral Intake NPO since Meds taken in AM with sips of water? Meds patient instructed to take am of surgery PONV PONV - surveillance manager: PONV - surveillance manager Female Yes 03/09/25 11:07 HX of Motion Sickness No 03/09/25 11:07 HX of N/V After Surgery No 03/09/25 11:07 Non-Smoker Yes 03/09/25 11:07 Duration of Surgery greater No 03/09/25 11:07 than 60 minutes Number of Risk Factors 2 03/09/25 11:07 PONV Score Moderate Risk 03/09/25 11:07 Height & Weight Height & Weight: Anesthesia: Height & Weight Height 5 ft 4 in 02/09/25 14:50 Respiratory Assessment Respiratory Assessment - surveillance manager: Respiratory Tract Infection Hx - surveillance manager Hx Respiratory Tract Infection No 03/09/25 11:07 STOP Sleep Apnea STOP Sleep Apnea - surveillance manager: STOP Sleep Apnea - surveillance manager Hx Hypertension No 03/09/25 11:07 Hx Sleep Apnea No 03/09/25 11:07 CPAP No 03/09/25 11:07 BIPAP No 03/09/25 11:07 Do you snore loudly (louder No 03/09/25 11:07 than talking or can be heard Do you often feel tired/ No 03/09/25 11:07 fatigued/ sleepy during daytime? Has anyone observed you stop No 03/09/25 11:07 breathing during sleep? STOP Results Negative 03/09/25 11:07 QUESTION #5 FULL TEXT : Do you snore loudly (louder than talking or can be heard through closed doors)? Tobacco Use History Tobacco Use History - surveillance manager: Tobacco Use History - surveillance manager Tobacco Use Smoking Status Never smoker 03/09/25 11:07 Hx Tobacco Use No 03/09/25 11:07 Years Smoking Packs Smoked per Day Smoking Cessation Date was within the last 15 years Hx Smoking Cessation Date Hx Smoking Cessation Counseling Hematologic Medial History Hematologic Hx - surveillance manager: Hematologic Medical Hx - abrading machine tender Hx of Blood Transfusion No 03/09/25 11:07 Hx of Transfusion in last 3 No 03/09/25 11:07 Months Date of Last Transfusion (if within last 3 months) Ever experience any problems No 03/09/25 11:07 with transfusion(s)? Specify any problems Hx of Preganancy in last 3 No 03/09/25 11:07 Months Nurse Filling Out Transfusion VCHRISTIN 03/09/25 11:07 & Questions: Date: 03/09/25 03/09/25 11:07 Time: 11:08 03/09/25 11:07 Patient unable to answer at this time (ie. confused, unrespo /Reproduction History /Reproductive History - surveillance manager: /Reproductive Hx- surveillance manager Hx Now No 03/09/25 11:07 Gestational Age (in weeks): EDC: Hx Hx Para Hx Section SAB No 03/09/25 11:07 [facility] Medical History (Updated 03/09/25 @ 11:07 by Pili Tierney) Wears glasses History of steroid therapy Thyroid disease Kidney stone Migraine headache Non-smoker Thyroiditis Alanna thyroiditis Normal colonoscopy Multiple thyroid nodules Lymph node enlargement Bartholin cyst FH: cholecystectomy Home Medications ?Medication ?Instructions ?Recorded ?Last Taken ?Type amitriptyline 25 mg tablet 25 mg PO QDAY PRN MIGRAINES 02/09/25 Unknown History levothyroxine 25 mcg tablet 50 mcg PO QDAY 02/09/25 Unknown History (Synthroid) linaclotide 290 mcg capsule 290 mcg PO QAM #90 caps 02/28/25 Unknown Rx (Linzess) vitamin D3 25 mcg (1,000 unit)-vit 1 tab PO DAILY 03/09/25 Unknown History K2 90 mcg disintegrating tablet (D3 Plus K2 Dots) Allergy/AdvReac Type Severity Reaction Status Date / Time Penicillins (PCN) Allergy Hives Verified 03/09/25 10:57 Family History Mother Lung cancer Grandmother Hypertension Hypercholesterolemia Father Cancer of kidney Surgical History (Updated 03/09/25 @ 11:07 by Pili Tierney) History of laparoscopic cholecystectomy History of tonsillectomy H/O adenoidectomy Social History household members: family housing: house number of children: 2 current occupational status: employed current occupation: [employer] current occupational exposures/hazards: No pets and animals: Yes leisure activities: sports history of recent travel: Yes ([place]) out of state: Yes out of country: No sexually active: Yes Smoking Status: Never smoker alcohol intake: never substance use type: does not use well-balanced diet: daily or most days caffeine: No eating out: rarely or never during the past year weight has: remained stable what type of physical activity do you participate in: walking jorge/roman catholic: Jew seatbelt use: always do you feel safe at home: Yes Audit: Pertinent Findings Pertinent Findings EKG Perinent findings: June 17, 2024. Normal sinus rhythm. Cannot exclude anterior infarction, age undetermined. Recommendation Anesthesia Recommendation Anesthesia recommendation: OPTIMIZED for anesthesia
[2025-03-16] VITALS (10 sets, daily range): BP systolic 96–113; BP diastolic 60–73; PULSE 70–87; RESP 16–18; TEMP 36.1–37.3; O2SAT 92–99; BMI 31.0
--- NOTE | 2025-03-16 01:42 | PCM.HP.BLA ---
History and Physical Date of Admission: 03/16/25 Intake Vital Signs 12/01/2512:50 02/09/2514:50 Height 5 ft 4 in 5 ft 4 in Weight: 175 lb 2 oz BMI 30.0 BP 131/81 H Intake Visit Reasons: +Braydon Uterus Cancer Test/Dr. Slater [employer] Laminator Required: No Is patient in pain?: Yes (stomach and back pain, several months) Allergies Penicillins (PCN) Allergy (Verified 02/09/25 14:51) Hives Medications ?Medication ?Instructions ?Recorded ?Confirmed ?Type dicyclomine 10 mg capsule 10 mg PO TID PRN abdominal pain 12/01/24 02/09/25 Rx #60 caps amitriptyline 25 mg tablet 25 mg PO QDAY PRN 02/09/25 02/09/25 History levothyroxine 25 mcg tablet 50 mcg PO QDAY 02/09/25 02/09/25 History (Synthroid) Is last menstrual period known: Yes Last Menstrual Period: 01/31/25 Post menopausal: No Patient : No : No PFSH Medical History Thyroiditis Alanna thyroiditis Normal colonoscopy Multiple thyroid nodules Lymph node enlargement Bartholin cyst FH: cholecystectomy Surgical History History of tonsillectomy H/O adenoidectomy Family History Mother Lung cancerGrandmother Hypertension HypercholesterolemiaFather Cancer of kidney Social History household members: family housing: house number of children: 2 current occupational status: employed current occupation: Accept[employer] current occupational exposures/hazards: No pets and animals: Yes leisure activities: sports history of recent travel: Yes ([place]) out of state: Yes out of country: No sexually active: Yes Smoking Status: Never smoker alcohol intake: never substance use type: does not use well-balanced diet: daily or most days caffeine: No eating out: rarely or never during the past year weight has: remained stable what type of physical activity do you participate in: walking jorge/moravian: Taoism seatbelt use: always do you feel safe at home: Yes HPI +Galleri Uterus Cancer Test/Dr. Slater Details: MARY GRACE JIMENEZ is a 49 year old who presents for abnormal galleri cancer screening test positive for possible uterine/disposition clerk origin. she has had a bartholins glan d cyst causing issue sand then GI symptoms for the last 9 months, esqueda sbeen through 3 different gi specialists and her pcp, general surgeons getting a workup for this with unclear diagnosis. she denies any fevers, initially had 20 lb weight loss but now is stable. she has had poscoital bleeding, she has intermiettent pelvic pain and upper abdominal pain.k she had intermittent hot flashes and hip pain with it. Female Reproductive History Last Menstrual Period: 01/31/25 Menopausal Symptoms: No night sweats History 2 Elective abortions Hx Para 2 Spontaneous abortions Hx # Term Pregnancies 2 Ectopic pregnancies Hx # Pregnancies Multiple births # of living children 2 ROS Const Constitutional: Reports weight loss; Denies fatigue, night sweats or weight gain ENT ENT: Reports system reviewed and no additional complaints, except as documented Cardio Card: Denies chest pain Resp Resp: Denies cough or dyspnea GI GI: Reports as per HPI, abdominal pain, constipation and nausea; Denies vomiting Details: diarrhea : Denies nipple discharge, urinary frequency, urinary incontinence, urinary hesitancy, urinary urgency, vaginal discharge, vaginal dryness, vaginal odor or vaginal pruritus Musc Musc: Reports back pain; Denies arthralgias or muscle weakness Skin Skin/Breast: Denies alopecia, change in hair, dry skin, breast mass, breast pain, breast skin changes or nipple discharge Neuro Neuro: Reports system reviewed and no additional complaints, except as documented Psych Psych: Reports system reviewed and no additional complaints, except as documented Endo Endo: Denies cold intolerance, excessive sweating, heat intolerance or polydipsia Osmar/Lymph Hematologic/Lymphatic: Denies easy bleeding, Denies easy bruising and Denies lymphadenopathy Exam Const General: cooperative, healthy appearing, comfortable, no acute distress and well developed Orientation: alert HENFL Head: normal to inspection and normocephalic Ears: hearing grossly normal bilaterally and external ears normal Nose: external nose normal and nares normal Face and sinus: normal facial exam Neck Neck: normal visual inspection and no lymphadenopathy Thyroid: thyroid normal Chest Chest palpation & inspection: normal inspection of the chest Resp Effort & Inspection: normal respiratory effort Auscultation: clear to auscultation bilaterally Cardio Rate: regular rate Rhythm: regular rhythm Heart Sounds: S1 normal and S2 normal GI Inspection: normal to inspection and non-distended Palpation: soft and no hepatosplenomegaly General: bladder normal to palpation External Female Exam: abnormal external appearance, normal appearance of the urethra and bartholin cyst Urethra: normal appearance of the urethra, normal palpation and no discharge Speculum Exam - Vagina: normal appearance of the vagina and normal vaginal discharge Speculum Exam - Cervix: normal appearance of the cervix and nontender Bimanual Exam- Vagina & Uterus: normal bimanual exam, uterine size normal, bladder normal to palpation, uterine shape normal, No tender, uterine mobility normal, consistency normal, normal palpation and non-tender Bimanual Exam- Adnexa, other: normal adnexae, adnexae mobile, no masses and normal Pelvic Support: normal Musc Other: gross motor intact no deficits, full bilateral strength Skin General: no rashes or lesions noted Neuro General: patient alert, patient awake, moves all extremities and no focal motor deficits Motor: muscle tone normal throughout Extrem General: normal to inspection and no pedal edema Psych Appearance: grossly normal Mental Status: mental status grossly normal Affect: normal affect Speech and Movement: speech and movement normal Coding Level of Care Code Off vis,est,level 4 Diagnoses Bartholin cyst N75.0 Abnormal genetic test R89.8 Postcoital bleeding N93.0 Assessment and Plan Assessment and Plan (1) Bartholin cyst: Status: Acute Comment: plan marsupilization (2) Abnormal genetic test: Status: Acute Comment: pelvic ultrasound showed several firboids, plan d and c hysterosocpy (3) Postcoital bleeding: Status: Acute Comment: plan d and c hysteroscopy Plan After discussing the patient's diagnosis and treatment plan options, patient wishes to proceed with surgical management. I have discussed with the patient the risks, benefits, and alternatives of the procedure which include but are not limited to risks of anesthesia, bleeding, infection, possible damage to bowel, bladder, or surrounding vasculature which could lead to additional surgery to evaluate any complications. Patient agrees to procedure and wishes to proceed. ACOG/uptodate references given for additional information regarding procedure.
[2025-03-16 11:00] LABS: Internal QC Validated? YES +Cl - CLEAR BKGD
[2025-03-16 11:01] LABS: Pregnancy, Urine Negative Negative
[2025-03-16] MEDS: Gentamicin IV 320 MG in Dextrose 5%-Water (50mL Bag) 50 ML 115 MG IVPB (11:06)
[2025-03-16] MEDS: Lactated Ringers 1,000 ML 15 ML IV (11:06)
[2025-03-16 11:17] LABS: Hematocrit 39.7 % (37-47); Hemoglobin 12.9 g/dL (12.0-15.0); Mean Corp Hgb Conc 32.5 g/dL (32-36); Mean Corpuscular Hgb 28.9 pg (27.0-32.0); Mean Platelet Vol. 10.5 fl (6.2-12.0); Platelet Count 221 K/mm3 (150-450); RBC Distribution Width CV 13.4 % (11.6-14.6); RBC Distribution Width SD 43.9 fl (35.1-43.9); Red Blood Count 4.46 M/mm3 (4.2-5.4); White Blood Count 8.5 K/mm3 (4.4-11.0)
--- NOTE | 2025-03-16 11:28 | PCM.PRE.AN2 ---
ASA Classification* ASA Classification ASA Classification: 2 Assessment & Plan Anesthesia* Anesthesia Assessment Anesthesia Assessment: Discussed sedation and/or anesthesia options, risks, benefits, and alternatives with patient/parents/legal guardian/POA. Questions invited. The patient/parents/legal guardian/POA seems to understand and agrees to proceed with anesthesia plan. Reviewed the physical assessment, medical history, allergy history and patient home medications list prior to surgery/procedure/anesthetic and documented any changes. Performed airway and anesthesia risk assessments. Anesthesia Type Anesthesia Type: MAC History Source History Obtained from:: Patient and Chart Anesthesia Focused Assessment* Temperature: 99.2 F Pulse Rate: 76 Blood Pressure: 112/65 Respiratory Rate: 16 Pulse Ox: 99 Oxygen Delivery Method: Room Air Airway Assessment Mouth opens: >3 cm Mallampati Score: III Teeth Condition: Caps/Crowns (Patient has several crowns. And 1 implant. They are all tight.) Neck Range of motion (ROM): Full ROM Focused Labs Anesthesia Preop lab: CBC WBC 8.5 K/mm3 (4.4-11.0) 03/16/25 11:00 03/16/25 RBC 4.46 M/mm3 (4.2-5.4) 03/16/25 11:00 03/16/25 Hgb 12.9 g/dL (12.0-15.0) 03/16/25 11:00 03/16/25 Hct 39.7 % (37-47) 03/16/25 11:00 03/16/25 Plt Count 221 K/mm3 (150-450) 03/16/25 11:00 03/16/25 CHEMISTRY Potassium 3.5 mmol/L (3.5-5.1) 12/01/24 15:11 12/01/24 Sodium 138 mmol/L (136-145) 12/01/24 15:11 12/01/24 BUN 8 mg/dL (7-18) 12/01/24 15:11 12/01/24 Creatinine 0.72 mg/dL (0.55-1.02) 12/01/24 15:11 12/01/24 Glucose 85 mg/dL (74-106) 12/01/24 15:11 12/01/24 COAG Urine Test Negative Negative 03/16/25 10:45 03/16/25 Pre-Assessment Diagnosis/Proposed Procedure Planned Operative Procedure(s): Hysteroscopy,Dilation and Curettage, Bartholins Gland Marsupilization Anesthesia History 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 When Was Last Pacemaker Check QUESTION #4 FULL TEXT: You/Your Family Experience fever (hyperthermia) with Anesthesia Last Oral Intake Last Oral intake: Last Oral Intake NPO since 20:00 03/16/25 10:57 Meds taken in AM with sips of No 03/16/25 10:57 water? Meds patient instructed to take am of surgery PONV PONV - solid waste facility supervisor: PONV - solid waste facility supervisor Female Yes 03/09/25 11:07 HX of Motion Sickness No 03/09/25 11:07 HX of N/V After Surgery No 03/09/25 11:07 Non-Smoker Yes 03/09/25 11:07 Duration of Surgery greater No 03/09/25 11:07 than 60 minutes Number of Risk Factors 2 03/09/25 11:07 PONV Score Moderate Risk 03/09/25 11:07 Height & Weight Height & Weight: Anesthesia: Height & Weight Height 5 ft 4 in 03/16/25 10:57 Weight: 82 kg 03/16/25 10:57 Body Mass Index (BMI) 31.0 03/16/25 10:57 Respiratory Assessment Respiratory Assessment - solid waste facility supervisor: Respiratory Tract Infection Hx - solid waste facility supervisor Hx Respiratory Tract Infection No 03/09/25 11:07 STOP Sleep Apnea STOP Sleep Apnea - solid waste facility supervisor: STOP Sleep Apnea - solid waste facility supervisor Hx Hypertension No 03/09/25 11:07 Hx Sleep Apnea No 03/09/25 11:07 CPAP No 03/09/25 11:07 BIPAP No 03/09/25 11:07 Do you snore loudly (louder No 03/09/25 11:07 than talking or can be heard Do you often feel tired/ No 03/09/25 11:07 fatigued/ sleepy during daytime? Has anyone observed you stop No 03/09/25 11:07 breathing during sleep? STOP Results Negative 03/09/25 11:07 QUESTION #5 FULL TEXT : Do you snore loudly (louder than talking or can be heard through closed doors)? 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 Specify any problems Hx of Preganancy in last 3 No 03/09/25 11:07 Months Nurse Filling Out Transfusion VCHRISTIN 03/09/25 11:07 & Questions: Date: 03/09/25 03/09/25 11:07 Time: 11:08 03/09/25 11:07 Patient unable to answer at this time (ie. confused, unrespo /Reproduction History /Reproductive History - solid waste facility supervisor: /Reproductive Hx- solid waste facility supervisor Hx Now No 03/09/25 11:07 Gestational Age (in weeks): EDC: Hx Hx Para Hx Section SAB No 03/09/25 11:07 Active Medications Active Medications: Current Medications Generic Name Dose Route Start Last Admin Trade Name Freq PRN Reason Stop Dose Admin Lactated Ringer's 1,000 mls @ 15 mls/hr 03/16/25 11:00 03/16/25 11:06 IV 15 mls/hr .Q48H GABRIELLA Administration PFSH Medical History Wears glasses History of steroid therapy Thyroid disease Kidney stone Migraine headache Non-smoker Thyroiditis Alanna thyroiditis Normal colonoscopy Multiple thyroid nodules Lymph node enlargement Bartholin cyst FH: cholecystectomy Home Medications ?Medication ?Instructions ?Recorded ?Last Taken ?Type amitriptyline 25 mg tablet 25 mg PO QDAY PRN MIGRAINES 02/09/25 Unknown History levothyroxine 25 mcg tablet 50 mcg PO QDAY 02/09/25 03/15/25 History (Synthroid) linaclotide 290 mcg capsule 290 mcg PO QAM #90 caps 02/28/25 Unknown Rx (Linzess) vitamin D3 25 mcg (1,000 unit)-vit 1 tab PO DAILY 03/09/25 03/15/25 History K2 90 mcg disintegrating tablet (D3 Plus K2 Dots) Allergy/AdvReac Type Severity Reaction Status Date / Time Penicillins (PCN) Allergy Hives Verified 03/16/25 10:56 Family History Mother Lung cancer Grandmother Hypertension Hypercholesterolemia Father Cancer of kidney Surgical History History of laparoscopic cholecystectomy History of tonsillectomy H/O adenoidectomy Social History household members: family housing: house number of children: 2 current occupational status: employed current occupation: [employer] current occupational exposures/hazards: No pets and animals: Yes leisure activities: sports history of recent travel: Yes ([place]) out of state: Yes out of country: No sexually active: Yes Smoking Status: Never smoker alcohol intake: never substance use type: does not use well-balanced diet: daily or most days caffeine: No eating out: rarely or never during the past year weight has: remained stable what type of physical activity do you participate in: walking jorge/christianity: [employer] seatbelt use: always do you feel safe at home: Yes Review of Systems (Anesthesia) ROS Narrative System reviewed and no additional complaints, except as documented.
--- NOTE | 2025-03-16 12:30 | EMB_PTH ---
PATIENT: MARY GRACE JIMENEZ [place] [facility] [id number] AGE/SX: 50/F ROOM: RE03/16/[address]: Dr. Liseth Pham MD : 1975 BED: DIS: 03/16/2025 SPEC #: [id number] RECD: 03/16/25 14:45 STATUS: LUL SCHROEDER #: [id number] JAJA: 03/16/25 12:[address]: Liseth Pham DEPT: SURGICAL PATHOLOGY RECD BY: Emre Ngo ENTERED: 03/16/25 15:09 SP TYPE: ENDOM BX/C NOAH DR: Dr. Theresa Slater DO Tissues: A - Endometrium, NOS Procedures: Surgery Specimen Level IV HEADER OPERATION: Hysteroscopy, D&C, Bartholin's cyst PRE-OP DIAGNOSIS: Bartholin cyst, abnormal genetic test, postcoital bleeding TISSUE SUBMITTED: A- Endometrial curettings MICROSCOPIC DIAGNOSIS A. Endometrium, curettage: * Secretory endometrium. MICROSCOPIC DESCRIPTION Slides are reviewed. GROSS DESCRIPTION A. Received in formalin in a container labeled with the patient's name, date of , and endometrial curettings are multiple causey-pink fragments of soft tissue admixed with blood and mucus measuring 2.7 x 2.5 x 0.7 cm in aggregate. Submitted in toto in A1-2. [facility] 03-16-2025 CPT:33870
[2025-03-16] MEDS: Clindamycin 900 MG/50 ML BAG 75 MG IV (13:04)
[2025-03-16] MEDS: Lidocaine 1% (20 ml mdv) 20 ML Vial (13:28)
--- NOTE | 2025-03-16 14:13 | DCINST_ITS ---
Discharge Instructions Procedure D&C Diet Discharge Diet: No restrictions Activity Discharge Activity: Return to Normal Activity, May Shower and May Take a Tub Bath (after 2-3 week) May resume sexual activity in: 4-6 weeks Weight Bearing Status: Weight bearing as tolerated Lifting Restrictions: none Dressing / Incision Call your doctor if you observe: Fever of 101 or Higher, Using more than 1 pad per hour, Shortness of breath and Uncontrolled pain Follow Up Care Please Follow Up With: Liseth Pham MD When: Call [phone] to schedule appointment. Test Results: Test results from this visit will be discussed in further detail at your follow- up appointment, if applicable. Discharge Plan Admission Attending Provider: Liseth Pham Primary Care Provider: Theresa Slater Instructions Print Language: Cameroonian Discharge Orders/Prescriptions Prescriptions: New oxycodone-acetaminophen [Percocet] 5-325 mg tablet 1 tab PO Q4H PRN (Reason: pain) 7 Days Qty: 20 0RF naproxen 500 mg tablet 500 mg PO BID PRN PRN (Reason: Pain) Qty: 30 1RF No Action levothyroxine [Synthroid] 25 mcg tablet 50 mcg PO QDAY amitriptyline 25 mg tablet 25 mg PO QDAY PRN (Reason: MIGRAINES) D3 Plus K2 Dots 25 mcg (1,000 unit)-90 mcg tablet,disintegrating 1 tab PO DAILY Linzess 290 mcg capsule 290 mcg PO QAM Qty: 90 1RF Rx Instructions: take on an empty stomach once daily 30 minutes before breakfast Referrals / Follow Up: Theresa Slater DO [Primary Care Provider] - Disposition Disposition (needs filled in before D/C Order can be placed): Home, Self Care
--- NOTE | 2025-03-16 14:13 | OP.PCM_ITS ---
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 Type of Anesthesia: IV Sedation and Local RN Documented Start/Stop Times: Operation Date: 03/16/25 12:30 Case Time Into Pre-Op 03/16/25 10:47 Anesthesia Start 03/16/25 12:59 Into Room 03/16/25 12:59 Out of Pre-Op 03/16/25 12:59 Procedure Start 03/16/25 13:23 Procedure End 03/16/25 13:47 Anesthesia End 03/16/25 13:53 Out of Room 03/16/25 13:53 Into Recovery 03/16/25 13:56 Into Phase II Recovery 03/16/25 14:44 Out of Recovery 03/16/25 14:44 Out of Phase II 03/16/25 15:30 Procedure Start Time: 13:23 Procedure Stop Time: 13:47 Select all DRAINS/GRAFTS/IMPLANTS that apply: None Estimated Blood Loss: 25 Specimen collected: Yes Description of specimen(s) removed: nl emb Description of surgery: Patient was prepped and draped in a normal sterile fashion under MAC anesthesia. A weighted speculum was placed in the vagina and the anterior lip of the cervix was grasped with a single-tooth tenaculum. A paracervical block was placed with 1% lidocaine. Cervix was progressively dilated to allow passage of a 7 mm hysteroscope. The lining was fully visualized and noted to have no thickening . Uterine sounded to 8 cm. Curettage was performed and tissue removed , sent to pathology. All instruments were removed from the vagina and excellent hemostasis was noted. right bartholin's cyst was incised and drained and the cyst wall marsupialized by stitching the skin and wall together with interrupted 3-0 vicryl rapides. hemostasis noted. Patient was awoken and taken to recovery in stable condition. Surgical Findings: thickened endometrial lining Complications Complications: No
--- NOTE | 2025-03-16 14:19 | PCM.POST.ANE ---
Anesthesia: Postop Eval I Current Vital Signs Temperature: 97 F Pulse Rate: 87 Blood Pressure: 113/73 Respiratory Rate: 16 Pulse Ox: 92 Oxygen Delivery Method: Room Air Assessment Airway patent: Yes Spontaneous unlabored respirations: Yes Mental status: Awake and Calm nausea: No Vomiting: No Anesthesia Complication: No Fluid Hydration Crystalloid volume administer (ml): 800 Total IV fluid infused: 800 Progress Note Anesthesia document: Postop Eval 1 completed: Yes
--- NOTE | 2025-03-16 14:20 | POSTOPAN2_ITS ---
Anesthesia Postop Eval I Sum Postop Eval Completion status Anesthesia document: Postop Eval 1 completed: Yes Anesthesia Postop Eval I Summary Anesthesia Postop Eval I Summary: Anesthesia Postop Eval I: Assessment Summary Airway patent Yes 03/16/25 14:20 STARTING GATE DRIVER.MDOT Spontaneous unlabored Yes 03/16/25 14:20 STARTING GATE DRIVER.MDOT respirations Mental status Awake,Calm 03/16/25 14:20 STARTING GATE DRIVER.MDOT nausea No 03/16/25 14:20 STARTING GATE DRIVER.MDOT Vomiting No 03/16/25 14:20 STARTING GATE DRIVER.MDOT Anesthesia Postop Eval I: Fluid Summary Crystalloid volume administer 800 03/16/25 14:20 STARTING GATE DRIVER.MDOT (ml) Colloids volume administered ( ml) Blood Product volume administered (ml) Total IV fluid infused 800 03/16/25 14:20 STARTING GATE DRIVER.MDOT Anesthesia Postop Eval I: Summary Notes Anesthesia Complication No 03/16/25 14:20 STARTING GATE DRIVER.MDOT Anesthesia Complication Comment: Post-operative progress note Anesthesia: Postop Eval II Evaluation Mental status: Awake and Calm Pain Level: 0 nausea: No Vomiting: No Complications Anesthesia Complication: No
--- NOTE | 2025-03-16 14:20 | PCM.POSTANE2 ---
Anesthesia Postop Eval I Sum Postop Eval Completion status Anesthesia document: Postop Eval 1 completed: Yes Anesthesia Postop Eval I Summary Anesthesia Postop Eval I Summary: Anesthesia Postop Eval I: Assessment Summary Airway patent Yes 03/16/25 14:20 PRO SHOP ATTENDANT.MDOT Spontaneous unlabored Yes 03/16/25 14:20 PRO SHOP ATTENDANT.MDOT respirations Mental status Awake,Calm 03/16/25 14:20 PRO SHOP ATTENDANT.MDOT nausea No 03/16/25 14:20 PRO SHOP ATTENDANT.MDOT Vomiting No 03/16/25 14:20 PRO SHOP ATTENDANT.MDOT Anesthesia Postop Eval I: Fluid Summary Crystalloid volume administer 800 03/16/25 14:20 PRO SHOP ATTENDANT.MDOT (ml) Colloids volume administered ( ml) Blood Product volume administered (ml) Total IV fluid infused 800 03/16/25 14:20 PRO SHOP ATTENDANT.MDOT Anesthesia Postop Eval I: Summary Notes Anesthesia Complication No 03/16/25 14:20 PRO SHOP ATTENDANT.MDOT Anesthesia Complication Comment: Post-operative progress note Anesthesia: Postop Eval II Evaluation Mental status: Awake and Calm Pain Level: 0 nausea: No Vomiting: No Complications Anesthesia Complication: No
== END 2025-03-16 15:30 | disposition home or self-care (01) ==
LOC: SDC 10:37 → AC 10:38
PROVIDERS: PCP Internal Medicine; Referring Provider Obstetrics & Gynecology; Visit Provider Obstetrics & Gynecology
PROC: 0UDB8ZZ Extraction of Endometrium, Via Natural or Artificial Opening Endoscopic (ICD-10-PCS; CPT 58558; principal; 2025-03-16 12:20)
DX: N75.0 Cyst of Bartholin's gland (principal); N93.0 Postcoital and contact bleeding; E06.3 Autoimmune thyroiditis; Z79.890 Hormone replacement therapy; Z79.899 Other long term (current) drug therapy
CPT/HCPCS: 58558; 56440; 00940; 81025; 85027; 86850; 86900; 86901; 88305; J2405

== ENCOUNTER → 2025-03-25 | Outpatient (CLI) | payer BC, SELFPAY ==
--- NOTE | 2025-03-25 08:47 | NM_ITS ---
PROCEDURE: HEPATOBILLIARY IMAGING 03/25/2025 REASON FOR EXAM: R/O SOD. Cholecystectomy 2015. TECHNIQUE: Intravenous Choletec with planar imaging of the abdomen. RADIOPHARMACEUTICAL: 5.3 mCi technetium 99 M mebrofenin intravenous. COMPARISON: None. FINDINGS: There is satisfactory uptake and excretion of the radiopharmaceutical by the liver. Small bowel activity is seen by the 9 minute film. NM/Hepatobilliary Imaging IMPRESSION: 1. No evidence of common duct obstruction. 2. Satisfactory hepatic uptake and excretion. Reading Location: [address]
== END | disposition home or self-care (01) ==
PROVIDERS: PCP Internal Medicine; Referring Provider Nurse Practitioner Acute Care; Visit Provider Nurse Practitioner Acute Care
DX: R10.11 Right upper quadrant pain (principal); M54.6 Pain in thoracic spine; R11.0 Nausea; G89.29 Other chronic pain
CPT/HCPCS: 78226; A9537

== ENCOUNTER → 2025-05-03 | Outpatient (CLI) | payer BC, SELFPAY ==
--- NOTE | 2025-05-03 13:24 | BI_ITS ---
EXAM: SCRN MAMM (CAD)W/JAYME BILAT DATE: 05/03/2025 CLINICAL HISTORY: F, Age 50 y/o , SCREENING TECHNIQUE: SCRN MAMM (CAD)W/JAYME BILAT COMPARISON: Prior exam(s) dated 01/05/2025, 05/01/2024, and 08/06/2023. FINDINGS: TISSUE DENSITY: There are scattered areas of fibroglandular density. Bilateral Breast Mammographic Findings: No suspicious masses, suspicious cluster of microcalcifications, architectural distortion or secondary sign of malignancy is identified in either breast. Stable nodular masslike densities are seen in both breast. A stable 8 mm masslike density is seen in the superior outer aspect of the right breast. Benign round calcifications are seen in the right breast. BI/SCRN MAMM (CAD)W/JAYME BILAT IMPRESSION: Benign screening mammogram. OVERALL FINAL ASSESSMENT BI-RADS 2: BENIGN RECOMMENDATION: Routine annual follow-up in 1 Year A letter with findings and recommendations will be mailed to the patient. Reading Location: [id number]
== END | disposition home or self-care (01) ==
LOC: OPBI 13:20
PROVIDERS: PCP Internal Medicine; Referring Provider Obstetrics & Gynecology; Visit Provider Obstetrics & Gynecology
DX: Z12.31 Encounter for screening mammogram for malignant neoplasm of breast (principal)
CPT/HCPCS: 77063; 77067

== ENCOUNTER → 2025-06-24 | Outpatient (CLI) | payer BC, SELFPAY ==
--- NOTE | 2025-06-24 09:39 | ECHOD_ITS ---
Reason For Study Reason For Study: Cardiomegaly Procedure This was a 2D Doppler, Color Flow transthoracic echocardiogram. Exam performed in department. Left Ventricle Normal LV size. The left ventricular ejection fraction is 60 %. Left ventricular systolic function is normal. Normal diastology for age. No regional wall motion abnormalities noted. Right Ventricle Normal RV size. Normal systolic function. Atria The left and right atria are normal. Mitral Valve The mitral valve is structurally normal. No prolapse or stenosis seen. Mild (1+) mitral valve insufficiency. Tricuspid Valve Normal tricuspid valve. Pulmonary artery systolic pressure is 19 mmHg. Moderate (2+) tricuspid valve insufficiency. Aortic Valve Trisinus/trileaflet aortic valve. Moderate (2+) aortic valve insufficiency. Pulmonic Valve Normal pulmonic valve. Great Vessels Normal sized aortic root. Pericardium/Pleural No pericardial effusion. MMode/2D Measurements & Calculations LVIDd: 5.0 cm IVSd: 0.86 cm Ao root diam: 3.2 cm LVIDs: 3.6 cm LVPWd: 1.1 cm RVDd: 3.3 cm FS: 28.7 % LAV(MOD-bp): 39.9 ml LVAd ap4: 24.3 cm2 SV(MOD-sp4): 47.9 ml LAV(MOD-bp) Indexed: 21.3 ml/m2 LVLd ap4: 6.3 cm SI(MOD-sp4): 25.6 ml/m2 LAV(MOD-sp2): 34.4 ml EDV(MOD-sp4): 77.9 ml LAV(MOD-sp4): 41.4 ml EDV(sp4-el): 79.4 ml LVAs ap4: 13.6 cm2 LVLs ap4: 5.4 cm ESV(MOD-sp4): 30.0 ml ESV(sp4-el): 29.5 ml EF(MOD-sp4): 61.5 % EF(sp4-el): 62.8 % SV(sp4-el): 49.9 ml LA A4 area: 16.6 cm2 LA dimension(2D): 3.6 cm RA A4 area: 16.2 cm2 Time Measurements MV dec time: 0.16 sec Doppler Measurements & Calculations MV E max isak: 76.2 cm/sec Lat Peak E' Isak: 13.4 cm/sec Med Peak E' Isak: 9.9 cm/sec MV A max isak: 71.3 cm/sec E/E' lat: 5.7 E/E' med: 7.7 MV E/A: 1.1 MV V2 max: 101.9 cm/sec MV P1/2t max isak: 101.9 cm/sec Ao V2 max: 131.4 cm/sec MV max P.2 mmHg MV P1/2t: 64.8 msec Ao max P.9 mmHg MV V2 mean: 52.2 cm/sec Ao V2 mean: 93.1 cm/sec MV mean P.3 mmHg MV dec slope: 460.8 cm/sec2 Ao mean P.0 mmHg MV V2 VTI: 29.0 cm MVA(P1/2t): 3.4 cm2 Ao V2 VTI: 30.8 cm AV (velocity ratio): 0.71 AI max isak: 478.6 cm/sec LV V1 max: 100.7 cm/sec MR max isak: 411.5 cm/sec AI max P.6 mmHg LV V1 max P.1 mmHg MR max P.7 mmHg LV V1 mean P.3 mmHg AI dec slope: 240.8 cm/sec2 LV V1 mean: 71.2 cm/sec AI P1/2t: 582.1 msec LV V1 VTI: 21.8 cm PA V2 max: 113.1 cm/sec TR max isak: 202.0 cm/sec PA V2 mean: 73.9 cm/sec TR max P.4 mmHg ECHO/Echo Complete Interpretation Summary The left ventricular ejection fraction is 60 %. Mild (1+) mitral valve insufficiency. Moderate (2+) tricuspid valve insufficiency. Moderate (2+) aortic valve insufficiency. Ordering Physician: Theresa Slater Referring Physician: Theresa Slater Performed By: Woodrow Shell RCS
== END | disposition home or self-care (01) ==
LOC: CVS 09:37
PROVIDERS: PCP Internal Medicine; Referring Provider Internal Medicine; Visit Provider Internal Medicine
DX: I51.7 Cardiomegaly (principal)
CPT/HCPCS: 93306

== ENCOUNTER → 2025-08-02 | Outpatient (CLI) | payer BC, SELFPAY ==
--- NOTE | 2025-08-02 15:17 | US_ITS ---
PROCEDURE: PELVIC W/ TRANSVAGINAL REASON FOR EXAM: HISTORY OF ABNORMAL GENETIC TEST Uterine fibroids. TECHNIQUE: Procedure Code: [id number] Modality: US Procedure: PELVIC W/ TRANSVAGINAL COMPARISON: Prior study dated February 01, 2025. FINDINGS: LMP: July 13, 2025. Measurements: Uterus: 11.3 cm x 6.7 cm x 6.7 cm with a volume of 263.2 mL Endometrial Thickness: 13 mm. It is trilaminar. Right Ovary: Nonvisualized. Left Ovary: 2.6 cm x 2.6 cm x 1.9 cm with a volume of 6.6 mL. TRANSABDOMINAL: Uterus: Enlarged fibroid uterus. Fundal fibroid measuring 2.1 cm 1.5 cm 1.2 cm. Stable 1.2 cm x 0.8 cm x 0.9 cm fundal fibroid. Endometrium: Endometrium measures 13 mm. This may be related to the patient's menstrual cycle. Right ovary: Not visualized. Left ovary: Normal size and echotexture. Other: No large pelvic mass identified. Transvaginal sonography was performed to better visualize the endometrium. TRANSVAGINAL: Uterus: Retroverted. Fibroid uterus. Endometrium: Endometrium measures 13 mm. It is trilaminar. Right ovary: Not visualized. Left ovary: Normal size and echotexture. Other adnexal findings: None. Cul-de-sac: No free intraperitoneal fluid identified. Tenderness: No tenderness US/Pelvic w/ Transvaginal IMPRESSION: Fibroid uterus. Reading Location: [place] [id number]
== END | disposition home or self-care (01) ==
LOC: US 15:15
PROVIDERS: PCP Internal Medicine; Referring Provider Obstetrics & Gynecology; Visit Provider Obstetrics & Gynecology
DX: R89.8 Other abnormal findings in specimens from other organs, systems and tissues (principal)
CPT/HCPCS: 76830; 76856